=== PATIENT | female | born 1990 ===

== ENCOUNTER 2021-05-31 19:12 | Emergency (ER) | payer SELFPAY ==
[~2021-05-31] VITALS: Ht 157.5 cm; Wt 60.0 kg
[2021-05-31 19:50] VITALS: BP 127/88
== END 2021-05-31 21:14 | disposition left against medical advice (07) ==
LOC: ER 19:13
DX: R06.02 Shortness of breath (principal); Z53.21 Procedure and treatment not carried out due to patient leaving prior to being seen by health care provider